=== PATIENT | male | born 1975 | race Caucasian/White ===

== ENCOUNTER 2019-07-22 21:34 | Emergency (ER) | payer SELFPAY ==
[~2019-07-22] VITALS: Ht 175.3 cm; Wt 112.2 kg
[2019-07-22 21:36] VITALS: BP 163/104
== END 2019-07-22 22:12 | disposition home or self-care (01) ==
LOC: ED 22:11
DX: M79.644 Pain in right finger(s) (principal)
CPT/HCPCS: 99281